=== PATIENT | male | born 1980 | race African-American/Black ===

== ENCOUNTER 2016-05-25 12:14 | Emergency (ER) | payer OTHER ==
--- NOTE | 2016-05-31 08:15 | ER ---
ADMIT: 05/25/2016 RM/LOC: ER [facility] MR#: [id number] [address] [id number] DALJIT BANKS [address] [place] [address] Emergency Room Report SEX: M AGE: 36 : 1980 DATE: 05/25/2016 A 36-year-old male comes to the Emergency Department with 2-3 weeks of hand pain, numbness and tingling, primarily in 5th through 3rd digits. He says this is substantially worse at night to the point where he cannot sleep. Does work in a meat-processing plant with repetitive hand movements. See T-sheet for remainder of history and physical. The patient is diagnosed with carpal tunnel. He is given cock-up splints, prednisone and pain medicine, and instructed to follow up with an orthopedist this coming week. DIAGNOSIS: Carpal tunnel. Laith Daniels MD/ angela JOB #: [id number] CC: Laith Daniels MD, Attending Physician Ling Zheng MD, Family Physician
== END 2016-05-25 13:57 | disposition home or self-care (01) ==
LOC: ER 12:14
DX: G56.03 Carpal tunnel syndrome, bilateral upper limbs (principal); Z88.8 Allergy status to other drugs, medicaments and biological substances